=== PATIENT | female | born 1955 | race Caucasian/White ===

== ENCOUNTER → 2017-09-20 | Outpatient (CLI) | payer MEDICARE ==
[~2017-09-20] MED LIST: ASCO10004 PO; ASPI-496 PO; BENZ-17 PO; CETI-158 PO; CHOL10003 PO; ELLIPTA PO; FLUT1DIS3 INH; FURO40TA6 PO; GUAI400T6 PO; LEVA15HF4 INH; LIRA0.6P SC; LISI-170 PO; METF500T5 PO; OMEG1CAP23 PO; POTA20TA89 PO; VENL37.57 PO
== END | disposition home or self-care (01) ==
LOC: CFH 09:13
PROVIDERS: ATTEND Nurse Practitioner Family
DX: Z12.31 Encounter for screening mammogram for malignant neoplasm of breast (principal); Z13.820 Encounter for screening for osteoporosis; M85.88 Other specified disorders of bone density and structure, other site; N95.9 Unspecified menopausal and perimenopausal disorder; Z80.3 Family history of malignant neoplasm of breast
CPT/HCPCS: 77080; 77067